=== PATIENT | female | born 1950 | race Caucasian/White ===

== ENCOUNTER 2023-11-24 14:44 | Inpatient (IN) ==
[2023-11-24] MEDS ORDERED: IOPAMIDOL 100 ML BOTTLE IV ONE (14:45)
[2023-11-24] MEDS ORDERED: 0.9 % SODIUM CHLORIDE 1,000 ML IV ONE (14:58)
[2023-11-24] MEDS ORDERED: ONDANSETRON 4 MG/2 ML VIAL IV ONE (15:15)
[2023-11-24] MEDS ORDERED: KETOROLAC 30 MG/ML VIAL IV ONE ×2 (15:15→19:19)
[2023-11-24 15:36] LABS: Basophils # (Auto) 0.03 K/mcL (0.00-0.30); Basophils % (Auto) 0.4 % (0.0-2.0); Eosinophils % (Auto) 1.4 % (0.0-7.0); Hematocrit 39.4 % (34.1-44.9); Hemoglobin 12.5 g/dL (11.2-15.7); Lymphocytes # (Auto) 2.21 K/mcL (1.50-4.80); Lymphocytes % (Auto) 31.5 % (15.5-49.0); Mean Cell Volume 89.7 fL (80.0-100.0); Mean Corpuscular HGB Conc 31.7 g/dL (31.0-36.0); Mean Platelet Volume 9.9 fL (8.8-12.5); Monocytes # (Auto) 0.57 K/mcL (0.10-0.90); Monocytes % (Auto) 8.1 % (1.0-12.0); Neutrophils % (Auto) 58.5 % (38.0-78.0); Platelet Count 174 K/mcL (140-440); RBC 4.39 M/mcL (3.59-5.38); Red Cell Distribution Width 12.9 % (11.5-14.5)
[2023-11-24 16:02] LABS: ALT/SGPT 12 U/L (<40); AST/SGOT 25 U/L (<32); Albumin 4.2 gm/dL (3.2-5.2); Albumin/Globulin Ratio 1.4 (1.0-2.3); Alkaline Phosphatase 58 U/L (39-117); Bilirubin,Total 0.2 mg/dL (0.1-1.0); Blood Urea Nitrogen 32 mg/dL (8-23); Calcium 9.8 mg/dL (8.6-10.4); Carbon Dioxide 25 mmol/L (22-30); Chloride 102 mmol/L (96-108); Glomerular Filtration Rate 49; Glucose 129 mg/dL (70-105)
[2023-11-24] MEDS ORDERED: ACETAMINOPHEN 325 MG TABLET PO ONE (19:08)
[2023-11-24] MEDS ORDERED: ACETAMINOPHEN 1,000 MG/100 ML BAG IV ONE (19:12)
[2023-11-24] MEDS ORDERED: PIPERACILLIN SODIUM/TAZOBACTAM 3.375 GM in DEXTROSE 5% IN WATER 100 ML IV SCH (19:45)
[2023-11-24] MEDS: DEXTROSE 5%-LR 1,000 ML IV SCH (20:31)
[2023-11-24] MEDS ORDERED: PIPERACILLIN SODIUM/TAZOBACTAM 3.375 GM in DEXTROSE 5% IN WATER 50 ML IV ONE (21:00)
[2023-11-24 21:14] LABS: Appearance,Urine Clear (Clear); Bilirubin,Urine Negative (Negative); Color,Urine Yellow; Culture Indicated,Urine No; Glucose,Urine (UA) Negative (Negative); Ketones,Urine Negative (Negative); Leukocyte Esterase,Urine Negative /uL (Negative); Mucus,Urine Few /hpf; Nitrate,Urine Negative (Negative); PH,Urine 5.5 (5.0-9.0); Protein,Urine Negative (Negative); Specific Gravity,Urine 1.015 (1.000-1.035); Urine Blood Negative ery/mcL (Negative); Urine RBC 0 /hpf (0-3); Urine Squamous Epithelial Cell 1 /hpf (0-4); Urine WBC 1 /hpf (0-4); Urobilinogen,Urine Normal
[2023-11-25] MEDS: PIPERACILLIN SODIUM/TAZOBACTAM 3.375 GM in DEXTROSE 5% IN WATER 100 ML IV SCH ×3 (01:13→21:30)
[2023-11-25] MEDS: DEXTROSE 5%-LR 1,000 ML IV SCH ×4 (03:49→22:51)
[2023-11-25] MEDS ORDERED: METOPROLOL TARTRATE 5 MG/5 ML VIAL IV PRN (06:26)
[2023-11-25 06:28] LABS: Hematocrit 33.4 % (34.1-44.9); Hemoglobin 10.8 g/dL (11.2-15.7); Mean Corpuscular HGB Conc 32.3 g/dL (31.0-36.0); Mean Platelet Volume 9.9 fL (8.8-12.5); Platelet Count 140 K/mcL (140-440); RBC 3.71 M/mcL (3.59-5.38); WBC 6.2 K/mcL (4.5-11.0)
[2023-11-25 06:33] LABS: Blood Urea Nitrogen 28 mg/dL (8-23); Calcium 8.6 mg/dL (8.6-10.4); Carbon Dioxide 24 mmol/L (22-30); Chloride 105 mmol/L (96-108); Glomerular Filtration Rate 55; Glucose 118 mg/dL (70-105)
[2023-11-25] MEDS ORDERED: PANTOPRAZOLE 40 MG VIAL IV SCH (07:30)
[2023-11-25] MEDS: PANTOPRAZOLE 40 MG VIAL IV SCH (07:42)
[2023-11-25] MEDS ORDERED: HEPARIN SOD,PORK IN 0.45% NACL 25,000 UNIT in PREMIX 1 BAG IV SCH (08:30)
[2023-11-25] MEDS: HYDROmorphone 0.5 MG/0.5 ML SYRINGE IV PRN ×2 (13:16→20:49)
[2023-11-25] MEDS ORDERED: ONDANSETRON 4 MG/2 ML VIAL ONE (17:18)
[2023-11-25] MEDS: ONDANSETRON 4 MG/2 ML VIAL IV PRN ×2 (17:19→21:30)
[2023-11-26] MEDS: ONDANSETRON 4 MG/2 ML VIAL IV PRN ×4 (02:11→19:19)
[2023-11-26] MEDS: DEXTROSE 5%-LR 1,000 ML IV SCH ×4 (06:05→22:49)
[2023-11-26] MEDS: PIPERACILLIN SODIUM/TAZOBACTAM 3.375 GM in DEXTROSE 5% IN WATER 100 ML IV SCH ×3 (06:06→22:09)
[2023-11-26 06:47] LABS: Hematocrit 37.4 % (34.1-44.9); Hemoglobin 12.2 g/dL (11.2-15.7); Mean Cell Volume 88.6 fL (80.0-100.0); Mean Corpuscular HGB Conc 32.6 g/dL (31.0-36.0); Mean Platelet Volume 9.6 fL (8.8-12.5); Platelet Count 143 K/mcL (140-440); RBC 4.22 M/mcL (3.59-5.38); WBC 8.4 K/mcL (4.5-11.0)
[2023-11-26 07:25] LABS: Blood Urea Nitrogen 12 mg/dL (8-23); Calcium 8.8 mg/dL (8.6-10.4); Carbon Dioxide 23 mmol/L (22-30); Chloride 101 mmol/L (96-108); Glomerular Filtration Rate 72; Glucose 141 mg/dL (70-105)
[2023-11-26] MEDS: HYDROmorphone 0.5 MG/0.5 ML SYRINGE IV PRN (07:35)
[2023-11-26] MEDS: PANTOPRAZOLE 40 MG VIAL IV SCH (07:35)
[2023-11-26] MEDS ORDERED: KETOROLAC 15 MG/ML VIAL IV PRN (19:22)
[2023-11-26] MEDS: ACETAMINOPHEN 1,000 MG/100 ML BAG IV PRN (20:04)
[2023-11-26] MEDS ORDERED: ACETAMINOPHEN 1,000 MG/100 ML BAG IV ONE (21:36)
[2023-11-27] MEDS: PIPERACILLIN SODIUM/TAZOBACTAM 3.375 GM in DEXTROSE 5% IN WATER 100 ML IV SCH ×3 (04:57→21:49)
[2023-11-27] MEDS: DEXTROSE 5%-LR 1,000 ML IV SCH ×4 (04:58→14:32)
[2023-11-27 06:27] LABS: Hematocrit 35.4 % (34.1-44.9); Hemoglobin 11.7 g/dL (11.2-15.7); Mean Cell Volume 88.3 fL (80.0-100.0); Mean Corpuscular HGB Conc 33.1 g/dL (31.0-36.0); Mean Platelet Volume 9.7 fL (8.8-12.5); Platelet Count 144 K/mcL (140-440); RBC 4.01 M/mcL (3.59-5.38); WBC 7.3 K/mcL (4.5-11.0)
[2023-11-27 06:54] LABS: Blood Urea Nitrogen 8 mg/dL (8-23); Carbon Dioxide 26 mmol/L (22-30); Chloride 105 mmol/L (96-108); Glomerular Filtration Rate 63; Glucose 109 mg/dL (70-105)
[2023-11-27] MEDS: PANTOPRAZOLE 40 MG VIAL IV SCH (08:01)
[2023-11-27] MEDS: ONDANSETRON 4 MG/2 ML VIAL IV PRN (09:47)
[2023-11-27] MEDS: ACETAMINOPHEN 1,000 MG/100 ML BAG IV PRN (17:25)
[2023-11-27] MEDS ORDERED: SIMVASTATIN 20 MG TABLET PO SCH (21:00)
[2023-11-27] MEDS ORDERED: APIXABAN 5 MG TABLET PO SCH (21:00)
[2023-11-27] MEDS ORDERED: ENOXAPARIN 80 MG/0.8 ML SYRINGE SQ SCH (21:00)
[2023-11-28] MEDS: DEXTROSE 5%-LR 1,000 ML IV SCH ×2 (02:36→05:19)
[2023-11-28] MEDS: PIPERACILLIN SODIUM/TAZOBACTAM 3.375 GM in DEXTROSE 5% IN WATER 100 ML IV SCH ×2 (05:19→14:07)
[2023-11-28] MEDS ORDERED: OMEPRAZOLE 20 MG CAPSULE PO SCH (07:30)
[2023-11-28] MEDS ORDERED: METOPROLOL SUCCINATE 25 MG TAB.XL.24H PO SCH (09:00)
[2023-11-28] MEDS ORDERED: APIXABAN 5 MG TABLET PO SCH (09:00)
== END 2023-11-28 14:00 | disposition home or self-care (01) | DRG 390 ==
LOC: ED 14:44 → MEDSUR 20:15
PROVIDERS: ADMIT Surgery Surgical Critical Care; ATTEND Surgery Surgical Critical Care